=== PATIENT | female | born 1985 | race American Indian/Alaskan Native ===

== ENCOUNTER 2019-09-12 18:44 | Emergency (ER) | payer SELFPAY ==
[2019-09-12 19:22] VITALS: BP 111/60
--- NOTE | 2019-09-12 19:22 | Event Note ---
ED Screening Note Date of service: 09/12/19 Time: 19:20 ED Screening Note: 34 y o female presents with chest pain x 2 days radiating to left arm This initial assessment/diagnostic orders/clinical plan/treatment(s) is/are subject to change based on patients health status, clinical progression and re- assessment by fellow clinical providers in the ED. Further treatment and workup at subsequent clinical providers discretion. Patient/guardian urged not to elope from the ED as their condition may be serious if not clinically assessed and managed. Initial orders include: labs,cxr,ekg
--- NOTE | 2019-09-12 19:54 | XRay Report ---
CHEST 2 VIEWS INDICATION / CLINICAL INFORMATION: pain. COMPARISON: None available. FINDINGS: SUPPORT DEVICES: None. HEART / MEDIASTINUM: No significant abnormality. LUNGS / PLEURA: No significant pulmonary or pleural abnormality. No pneumothorax. ADDITIONAL FINDINGS: No significant additional findings. IMPRESSION: 1. No acute findings. Signer Name: Norberto Hinojosa MD Signed: 09/12/2019 7:50 PM Workstation Name: [id number]
[2019-09-12 20:08] LABS: Basophils # (Auto) 0.1 K/mm3 (0.0-0.1); Basophils % (Auto) 0.7 % (0.0-1.8); Eosinophils # (Auto) 0.1 K/mm3 (0.0-0.4); Eosinophils % (Auto) 1.6 % (0.0-4.3); Hematocrit 38.9 % (30.3-42.9); Hemoglobin 13.1 gm/dl (10.1-14.3); Lymphocytes # (Auto) 2.3 K/mm3 (1.2-5.4); Lymphocytes % (Auto) 31.9 % (13.4-35.0); Mean Corpuscular HGB Conc 34 % (30-34); Mean Corpuscular Volume 96 fl (79-97); Monocytes # (Auto) 0.6 K/mm3 (0.0-0.8); Monocytes % (Auto) 8.4 % (0.0-7.3); Platelet Count 235 K/mm3 (140-440); Red Blood Count 4.06 M/mm3 (3.65-5.03); Red Cell Distribution Width 13.2 % (13.2-15.2)
[2019-09-12 20:38] LABS: BUN/Creatinine Ratio 11; Blood Urea Nitrogen 10 mg/dL (7-17); Calcium 9.2 mg/dL (8.4-10.2); Hemolysis Index 9
--- NOTE | 2019-09-12 22:05 | Emergency Department Report ---
ED Chest Pain HPI - General Chief Complaint: Chest Pain Stated Complaint: CHEST TIGHTNESS/SOB/LT ARM PAIN Time Seen by Provider: 09/12/19 19:20 Source: patient Mode of arrival: Ambulatory Limitations: No Limitations - History of Present Illness Initial Comments: 34-year-old -[place] female presents to the emergency room for chest pain that radiates down left arm and reports that she is having shortness of breath and feeling suffocated. Patient does report that he's been taken diet pills of phentermine and has been drinking energy drinks as well as taken any [id number]-gvi-evnuxnd supplement called thermogenic area patient reports that she does have endometriosis and had taken some control pills that were not assigned to her. MD Complaint: chest pain Onset/Timin -: days(s) Onset: during rest Pain Location: left chest Pain Radiation: LUE Severity scale (0 -10): 8 Quality: tightness, pressure, squeezing Consistency: constant Improves With: nothing Worsens With: nothing re: dyspnea, sense of impending doom. denies: nausea, vomting Treatments Prior to Arrival: aspirin Aspirin use within the Past 7 Days: (0) No - Related Data On Oral Contraceptives: Yes Allergies Allergy/AdvReac Type Severity Reaction Status Date / Time No Known Allergies Allergy Verified 09/12/19 19:20 Heart Score - HEART Score History: Slightly suspicious EKG: Normal Age: < 45 Risk factors: 1-2 risk factors Troponin: < normal limit HEART Score: 1 ED Review of Systems ROS: Stated complaint: CHEST TIGHTNESS/SOB/LT ARM PAIN Other details as noted in HPI Comment: All other systems reviewed and negative ED Past Medical Hx - Past Medical History Previous Medical History?: Yes Additional medical history: Endometriosis - Surgical History Past Surgical History?: Yes Additional Surgical History: Ovarian cyst - Social History Smoking Status: Current Some Day Smoker ED Physical Exam - General Limitations: No Limitations General appearance: alert, in no apparent distress - Head Head exam: Present: atraumatic, normocephalic - Eye Eye exam: Present: normal appearance - ENT ENT exam: Present: mucous membranes moist - Neck Neck exam: Present: normal inspection - Respiratory Respiratory exam: Present: normal lung sounds bilaterally. Absent: respiratory distress - Cardiovascular Cardiovascular Exam: Present: regular rate, normal rhythm. Absent: systolic murmur, diastolic murmur, rubs, gallop - GI/Abdominal GI/Abdominal exam: Present: soft, normal bowel sounds - Extremities Exam Extremities exam: Present: normal inspection - Back Exam Back exam: Present: normal inspection - Neurological Exam Neurological exam: Present: alert, oriented X3 - Psychiatric Psychiatric exam: Present: normal affect, normal mood - Skin Skin exam: Present: warm, dry, intact, normal color. Absent: rash ED Course Vital Signs 09/12/19 19:20 Temperature 99.3 F Pulse Rate 89 Respiratory 24 Rate Blood Pressure 111/60 [Right] O2 Sat by Pulse 99 Oximetry GAETANO score - Gaetano Score Age > 65: (0) No Aspirin use within the Past 7 Days: (1) Yes 3 or more CAD Risk Factors: (0) No 2 or more Angina events in past 24 hrs: (0) No Known CAD with more than 50% Stenosis: (0) No Elevated Cardiac Markers: (0) No ST Deviation Greater than 0.5mm: (0) No GAETNAO Score: 1 ED Medical Decision Making - Lab Data Result diagrams: 09/12/19 19:48 09/12/19 19:48 - Radiology Data Radiology results: report reviewed atient: ROMEO PEREZ MR#: [id number] : 1985 Acct:[id number] Age/Sex: 34 / F ADM Date: 09/12/19 Loc: ED Attending Dr: Ordering Physician: TRISH GORMAN Date of Service: 09/12/19 Procedure(s): XR chest routine 2V Accession Number(s): [id number] cc: TRISH GORMAN Fluoro Time In Minutes: CHEST 2 VIEWS INDICATION / CLINICAL INFORMATION: pain. COMPARISON: None available. FINDINGS: SUPPORT DEVICES: None. HEART / MEDIASTINUM: No significant abnormality. LUNGS / PLEURA: No significant pulmonary or pleural abnormality. No pneumothorax. ADDITIONAL FINDINGS: No significant additional findings. IMPRESSION: 1. No acute findings. Signer Name: Norberto Hinojosa MD Signed: 09/12/2019 7:50 PM Workstation Name: [id number] Transcribed By: TL Dictated By: Norberto Hinojosa MD Electronically Authenticated By: Norberto Hinojosa MD Signed Date/Time: 09/12/191949 DD/ 48 TD/TT: - Medical Decision Making 34-year-old -[place] female presents to the emergency room for chest pain that radiates down left arm and reports that she is having shortness of breath and feeling suffocated. Patient does report that he's been taken diet pills of phentermine and has been drinking energy drinks as well as taken any gayk-zkp-hejvyca supplement called thermogenic area patient reports that she does have endometriosis and had taken some control pills that were not assigned to her. - Differential Diagnosis KS, PE, Critical care attestation.: If time is entered above; I have spent that time in minutes in the direct care of this critically ill patient, excluding procedure time. ED Disposition Clinical Impression: Chest pain, Amphetamine adverse reaction Disposition: DC- TO HOME OR SELFCARE Is pt being admited?: No Does the pt Need Aspirin: No Condition: Stable Instructions: Chest Pain (ED) Additional Instructions: Please avoid using stimulants such as phentermine with energy drinks and thermogenesis. As these can cause chest discomfort shortness of breath and palpitations. Her labs are negative for any acute abnormalities chest x-ray is negative for any acute abnormalities. EKG is normal. Referrals: PRIMARY CARE, [Primary Care Provider] - 3-5 Days Forms: Work/School Release Form(ED)
[2019-09-12] MEDS ORDERED: IBUPROFEN 600 MG TAB PO ONE (22:21)
[2019-09-13 00:30] LABS: Amphetamine Screen,Urine PRESUMPTIVE NEGATIVE; Benzodiazepines Screen,Urine PRESUMPTIVE NEGATIVE; Cocaine Screen,Urine PRESUMPTIVE NEGATIVE; Methadone Screen,Urine PRESUMPTIVE NEGATIVE; Opiate Screen,Urine PRESUMPTIVE NEGATIVE
[2019-09-13 00:34] LABS: Cannabinoid Screen,Urine PRESUMPTIVE POSITIVE
== END 2019-09-12 23:20 | disposition home or self-care (01) ==
LOC: ED 18:44
DX: T43.625A Adverse effect of amphetamines, initial encounter (principal); R07.89 Other chest pain; F17.200 Nicotine dependence, unspecified, uncomplicated; X58.XXXA Exposure to other specified factors, initial encounter; Y93.89 Activity, other specified; Y92.89 Other specified places as the place of occurrence of the external cause; Y99.8 Other external cause status
CPT/HCPCS: 36415; 71046; 80048; 80307; 83880; 84484; 85025; 85379; 93005; 93010